=== PATIENT | female | born 1990 | race Caucasian/White ===

== ENCOUNTER 2023-09-05 09:10 | Emergency (ER) | payer OTHER ==
[2023-09-05 09:31] VITALS: TEMP 97.9; BMI 40.7
[2023-09-05] MEDS ORDERED: FAMOTIDINE 20 MG/50 ML IVPB 20 MG/50 ML MG IVPB ONE (09:39)
[2023-09-05] MEDS ORDERED: ACETAMINOPHEN INJECTION 100 ML IVPB ONE (09:39)
[2023-09-05] MEDS ORDERED: ONDANSETRON 4 MG/2 ML VIAL ONE (09:39)
[2023-09-05] MEDS ORDERED: MAG HYDROX/AL HYDROX/SIMETH 30 ML UNIT-DOSE CUP ONE (09:39)
[2023-09-05] MEDS: LACTATED RINGERS SOLUTION 1000 ML INFUS.BAG IV ONE ×2 (09:45→10:25)
[2023-09-05] MEDS: MAG HYDROX/AL HYDROX/SIMETH 30 ML UNIT-DOSE CUP PO ONE (09:45)
[2023-09-05] MEDS: ONDANSETRON 4 MG/2 ML VIAL IVPUSH ONE (09:45)
[2023-09-05] MEDS: FAMOTIDINE 20 MG/50 ML IVPB 20 MG/50 ML MG IVPB ONE (09:50)
[2023-09-05 10:03] LABS: HEMATOCRIT 52.9 % (32.4-45.2); HEMOGLOBIN 17.5 G/dL (10.7-15.3); MCH 30.1 pg (25.7-33.7); MCHC 33.1 g/dl (32.0-36.0); MEAN CELL VOLUME 90.7 fl (80-96); MEAN PLT VOLUME 8.8 fl (7.5-11.1); PLATELET COUNT 264.6 10^3/uL (134-434); RBC 5.83 10^6/uL (3.60-5.2); RDW 14.2 % (11.6-15.6); WHITE BLOOD COUNT 5.3 10^3/uL (4.0-10.8)
[2023-09-05] MEDS: ACETAMINOPHEN 1000 MG/100 ML BAG IVPB ONE (10:04)
[2023-09-05 10:16] LABS: PLATELET ESTIMATE ADEQUATE
[2023-09-05 10:17] LABS: ALBUMIN 4.4 g/dl (3.4-5.0); BILIRUBIN,TOTAL 0.6 mg/dl (0.2-1); CALCIUM 9.7 mg/dl (8.5-10.1); CREATININE 1.1 mg/dl (0.6-1.3); POTASSIUM 3.4 mmol/L (3.5-5.1); TOT PROT 7.2 g/dl (6.4-8.2)
[2023-09-05 11:35] VITALS: BP 108/73; PULSE 75; RESP 16
[2023-09-05 15:58] LABS: ERYTHROCYTE SEDIMENTATION RATE 4 mm/hr (0-20)
== END 2023-09-05 11:55 | disposition home or self-care (01) ==
LOC: FER 09:10
PROC: 3E033GC Introduction of Other Therapeutic Substance into Peripheral Vein, Percutaneous Approach (ICD-10-PCS; principal; 2023-09-05)
PROC: 3E033GC Introduction of Other Therapeutic Substance into Peripheral Vein, Percutaneous Approach (ICD-10-PCS; 2023-09-05)
PROC: 3E033NZ Introduction of Analgesics, Hypnotics, Sedatives into Peripheral Vein, Percutaneous Approach (ICD-10-PCS; 2023-09-05)
DX: R19.7 Diarrhea, unspecified (principal); R11.0 Nausea; R10.84 Generalized abdominal pain
CPT/HCPCS: 36415; 74177-TC; 80053; 83690; 84703; 85027; 85651; 86140; 99285-25; J0131; Q9967